=== PATIENT | male | born 1960 | race Caucasian/White ===

== ENCOUNTER 2018-09-02 12:57 | Inpatient (IN) | payer OTHER ==
[2018-09-02 13:13] VITALS: BMI 19.5
--- NOTE | 2018-09-02 15:29 | HP ---
COWS - Scale Resting Pulse: 0= [place] 80 or Below Sweatin= Chills/Flushing Restless Observation: 3= Extraneous Movement Pupil Size: 1= Pupils >than Normal Bone or Joint Aches: 2= Severe Diffuse Aches Runny Nose/ Eye Tearin= Runny Nose/Eyes GI Upset > 30mins: 2= Nausea/Diarrhea Tremor Observation: 2= Slight Tremor Visible Yawning Observation: 1= 1-2x During Session Anxiety or Irritability: 2=Irritable/Anxious Goose Flesh Skin: 0=Smooth Skin COWS Score: 16 Admission ROS S - HPI Chief Complaint: i need help to stop using heroin and marijuana Allergies/Adverse Reactions: Allergies Allergy/AdvReac Type Severity Reaction Status Date / Time No Known Allergies Allergy Verified 09/02/18 15:14 History of Present Illness: this 57 years old male with heroin dependence,also marijuana dependence,seeking detox,withdrawal symptom,[facility] detox 2010 [facility] hepatitis c no treatment weight loss anxiety,depression,insomnia hypertension no medication plan to go rehab after detox - Ebola screening Have you traveled outside of the country in the last 21 days: No (N) Have you had contact with anyone from an Ebola affected area: No Have you been sick,other than usual withdrawal symptoms: No Do you have a fever: No - Review of Systems Constitutional: Chills, Loss of Appetite, Malaise, Night Sweats, Changes in sleep, Weakness, Unintentional Wgt. Loss EENT: reports: Tearing, Nose Congestion Respiratory: reports: No Symptoms reported Cardiac: reports: No Symptoms Reported GI: reports: Nausea, Poor Appetite, Abdominal cramping Musculoskeletal: reports: Back Pain, Joint Pain, Muscle Pain, Joint Stiffness Integumentary: reports: Dryness Neuro: reports: Headache, Tremors Endocrine: reports: No Symptoms Reported Hematology: reports: No Symptoms Reported Psychiatric: reports: Orientated x3, Anxious, Depressed (insomnia) Patient History - Patient Medical History Hx Asthma: No Hx Chronic Obstructive Pulmonary Disease (COPD): No Hx Cancer: No Hx Cardiac Disorders: No Hx Congestive Heart Failure: No Hx Hypertension: Yes (no med) Hx Hypercholesterolemia: No Hx Pacemaker: No HX Cerebrovascular Accident: No Hx Seizures: No Hx Dementia: No Hx Diabetes: No Hx Gastrointestinal Disorders: No Hx Liver Disease: No Hx Genitourinary Disorders: No Hx Sexually Transmitted Disorders: No Hx Renal Disease (ESRD): No Hx Thyroid Disease: No Hx Human Immunodeficiency Virus (HIV): No (last 2016) Hx Hepatitis C: Yes (no treatment) Hx Depression: Yes Hx Suicide Attempt: No Hx Bipolar Disorder: No Hx Schizophrenia: No Other Medical History: anxiety,depression,insomnia - Patient Surgical History Past Surgical History: No - PPD History Previous Implant?: Yes Documented Results: Negative w/o proof Implanted On Prior [facility] Admission?: No PPD to be Administered?: Yes - Smoking Cessation Smoking history: Never smoked - Substance & Tx. History Hx Alcohol Use: Yes Hx Substance Use: Yes Substance Use Type: Heroin, Marijuana Hx Substance Use Treatment: Yes ([facility] in 2010) - Substances Abused Heroin Route: Inhalation Frequency: Daily Amount used: 2 bags Age of first use: 23 Date of Last Use: 09/01/18 Marijuana/Hashish Route: Smoking Frequency: Daily Amount used: 1 joint Age of first use: 14 Date of Last Use: 09/02/18 Family Disease History - Family Disease History Family Disease History: Other: Father (dsa,alcohol,), Brother (dsa, alcohol) Admission Physical Exam S - Vital Signs Vital Signs: Vital Signs - 24 hr 09/02/18 13:10 Temperature 98.2 F Pulse Rate 61 Respiratory 20 Rate Blood Pressure 113/72 - Physical General Appearance: Yes: Moderate Distress, Tremorous, Irritable, Sweating, Anxious HEENTM: Yes: Normal ENT Inspection, MARY, Pharynx Normal Respiratory: Yes: Lungs Clear, Normal Breath Sounds, No Respiratory Distress Neck: Yes: Within Normal Limits, Supple, Trachea in good position Breast: Yes: Within Normal Limits Cardiology: Yes: Within Normal Limits, Regular Rhythm, Regular Rate, S1, S2 Abdominal: Yes: Within Normal Limits, Normal Bowel Sounds, Non Tender, Soft Genitourinary: Yes: Within Normal Limits Back: Yes: Muscle Spasm Musculoskeletal: Yes: Back pain, Joint Stiffness, Muscle Pain Extremities: Yes: Within Normal Limits, Normal Range of Motion, Tremors Neurological: Yes: second baller II-XII NML intact, Alert, Motor Strength 5/5 Integumentary: Yes: Dry Lymphatic: Yes: Within Normal Limits - Diagnostic (1) Opioid dependence with withdrawal Current Visit: Yes Status: Acute (2) Cannabis dependence Current Visit: Yes Status: Acute (3) Hepatitis C Current Visit: Yes Status: Acute (4) Depression Current Visit: Yes Status: Acute (5) Dehydration Current Visit: Yes Status: Acute (6) Hypertension Current Visit: Yes Status: Acute Cleared for Admission [facility] - Detox or Rehab [facility] Level of Care: Medically Managed Detox Regimen/Protocol: Methadone [facility] Breath Alcohol Content Breath Alcohol Content: 0 Urine Drug Screen - Results Drug Screen Negative: No Urine Drug Screen Results: THC-Marijuana, OPI-Opiates, FEN-Fentanyl
[2018-09-02] MEDS ORDERED: guaiFENesin/D-METHORPHAN HB 10 ML UNIT-DOSE CUPS PO PRN (15:40)
[2018-09-02] MEDS ORDERED: MAGNESIUM CITRATE 300 ML BOTTLE PO PRN (15:40)
[2018-09-02] MEDS ORDERED: MENTHOL/PHENOL 1 EACH UD MM PRN (15:40)
[2018-09-02] MEDS ORDERED: ACETAMINOPHEN 325 MG TABLET (FP) PO PRN (15:40)
[2018-09-02] MEDS ORDERED: MAG HYDROX/AL HYDROX/SIMETH 30 ML UNIT-DOSE CUP PO PRN (15:40)
[2018-09-02] MEDS ORDERED: MAGNESIUM HYDROX 2400MG/30ML ORAL SUSPENSION 30 ML CUP PO PRN (15:40)
[2018-09-02] MEDS ORDERED: P-EPHED 60MG/TRIPROLIDI 2.5MG TABLET PO PRN (15:40)
[2018-09-02] MEDS ORDERED: LOPERAMIDE HCL 2 MG CAPSULE PO PRN (15:40)
[2018-09-02] MEDS ORDERED: IBUPROFEN 400 MG TABLET (FP) PO PRN (15:40)
[2018-09-02] MEDS ORDERED: METHADONE HCL 10 MG TABLET (FOR DETOX USE ONLY) PO ONE ×2 (16:45→23:00)
[2018-09-02] MEDS: THIAMINE HCL 100 MG TABLET (FP) PO SCH (22:35)
[2018-09-03 01:24] LABS: URINE APPEARANCE CLEAR; URINE BILIRUBIN NEGATIVE (<2.0 mg/dL); URINE COLOR YELLOW; URINE GLUCOSE (UA) NEGATIVE (NEGATIVE); URINE KETONE NEGATIVE (NEGATIVE); URINE LEUK ESTERASE NEGATIVE (NEGATIVE); URINE NITRITE NEGATIVE (NEGATIVE); URINE PROTEIN NEGATIVE (NEGATIVE); URINE UROBILINOGEN NEGATIVE mg/dL (0.2-1.0)
[2018-09-03] MEDS ORDERED: METHADONE HCL 10 MG TABLET (FOR DETOX USE ONLY) PO ONE (10:00)
[2018-09-03] MEDS: PRENATAL VITAMINS W/ FOLIC ACID TABLET (FP) PO SCH (10:22)
--- NOTE | 2018-09-03 10:35 | EKG ---
Test Reason : Blood Pressure : / mmHG Vent. Rate : 056 BPM Atrial Rate : 056 BPM P-R Int : 140 ms QRS Dur : 080 ms QT Int : 436 ms P-R-T Axes : 075 071 050 degrees QTc Int : 420 ms POOR DATA QUALITY, INTERPRETATION MAY BE ADVERSELY AFFECTED SINUS BRADYCARDIA WITH PREMATURE ATRIAL COMPLEXES NO PREVIOUS ECGS AVAILABLE Confirmed by LEONARDA BROWN MD ([id number]) on 09/03/2018 10:35:42 AM Referred By: Confirmed By:LEONARDA BROWN MD
[2018-09-03 11:26] LABS: HEMATOCRIT 42.8 % (35.4-49); HEMOGLOBIN 14.3 GM/dL (11.7-16.9); MCH 30.8 pg (25.7-33.7); MCHC 33.4 g/dl (32.0-35.9); MEAN CELL VOLUME 92.4 fl (80-96); MEAN PLT VOLUME 7.8 fl (7.5-11.1); PLATELET COUNT 167 K/MM3 (134-434); RBC 4.64 M/mm3 (4.00-5.60); RDW 13.8 % (11.9-15.9); WHITE BLOOD COUNT 5.8 K/mm3 (4.0-10.0)
[2018-09-03 11:28] LABS: ALBUMIN 3.4 g/dl (3.4-5.0); ALK PHOS 85 U/L (45-117); ANION GAP 8 MMOL/L (8-16); BILIRUBIN,TOTAL 0.5 mg/dL (0.2-1); BLOOD UREA NITROGEN 14 mg/dL (7-18); CALCIUM 8.9 mg/dL (8.5-10.1); CHLORIDE 107 mmol/L (98-107); CO2 26 mmol/L (21-32); GLUCOSE,RANDOM 80 mg/dL (74-106); POTASSIUM 4.2 mmol/L (3.5-5.1); SGOT/AST 16 U/L (15-37); SGPT/ALT 30 U/L (13-61); SODIUM 141 mmol/L (136-145); TOT PROT 6.5 g/dl (6.4-8.2)
--- NOTE | 2018-09-03 16:08 | PN ---
BHS COWS - Scale Resting Pulse: 0= [place] 80 or Below Sweatin= Chills/Flushing Restless Observation: 3= Extraneous Movement Pupil Size: 1= Pupils >than Normal Bone or Joint Aches: 2= Severe Diffuse Aches Runny Nose/ Eye Tearin= Runny Nose/Eyes GI Upset > 30mins: 2= Nausea/Diarrhea Tremor Observation of Outstretched Hands: 2= Slight Tremor Visible Yawning Observation: 1= 1-2x During Session Anxiety or Irritability: 2=Irritable/Anxious Goose Flesh Skin: 0=Smooth Skin COWS Score: 16 S Progress Note (SOAP) Subjective: alert,irritable,anxious,interrupted sleep,pain in the body and back Objective: 09/03/18 16:06 Vital Signs Temperature 98.5 F 09/03/18 15:23 Pulse Rate 64 09/03/18 15:23 Respiratory Rate 16 09/03/18 15:23 Blood Pressure 92/54 L 09/03/18 15:23 O2 Sat by Pulse Oximetry (%) ekg sinus bradycardia 56/mi pac no chest pain,no sob,no dizziness Laboratory Last Values WBC 5.8 K/mm3 (4.0-10.0) 09/03/18 08:00 RBC 4.64 M/mm3 (4.00-5.60) 09/03/18 08:00 Hgb 14.3 GM/dL (11.7-16.9) 09/03/18 08:00 Hct 42.8 % (35.4-49) 09/03/18 08:00 MCV 92.4 fl (80-96) 09/03/18 08:00 MCH 30.8 pg (25.7-33.7) 09/03/18 08:00 MCHC 33.4 g/dl (32.0-35.9) 09/03/18 08:00 RDW 13.8 % (11.9-15.9) 09/03/18 08:00 Plt Count 167 K/MM3 (134-434) 09/03/18 08:00 MPV 7.8 fl (7.5-11.1) 09/03/18 08:00 Sodium 141 mmol/L (136-145) 09/03/18 08:00 Potassium 4.2 mmol/L (3.5-5.1) 09/03/18 08:00 Chloride 107 mmol/L (98-107) 09/03/18 08:00 Carbon Dioxide 26 mmol/L (21-32) 09/03/18 08:00 Anion Gap 8 MMOL/L (8-16) 09/03/18 08:00 BUN 14 mg/dL (7-18) 09/03/18 08:00 Creatinine 1.0 mg/dL (0.55-1.3) 09/03/18 08:00 Creat Clearance w eGFR > 60 (>60) 09/03/18 08:00 Random Glucose 80 mg/dL (74-106) 09/03/18 08:00 Calcium 8.9 mg/dL (8.5-10.1) 09/03/18 08:00 Total Bilirubin 0.5 mg/dL (0.2-1) 09/03/18 08:00 AST 16 U/L (15-37) 09/03/18 08:00 ALT 30 U/L (13-61) 09/03/18 08:00 Alkaline Phosphatase 85 U/L (45-117) 09/03/18 08:00 Total Protein 6.5 g/dl (6.4-8.2) 09/03/18 08:00 Albumin 3.4 g/dl (3.4-5.0) 09/03/18 08:00 Urine Color Yellow 09/03/18 00:00 Urine Appearance Clear 09/03/18 00:00 Urine pH 5.0 (5.0-8.0) 09/03/18 00:00 Ur Specific [place] 1.020 (1.010-1.035) 09/03/18 00:00 Urine Protein Negative (NEGATIVE) 09/03/18 00:00 Urine Glucose (UA) Negative (NEGATIVE) 09/03/18 00:00 Urine Ketones Negative (NEGATIVE) 09/03/18 00:00 Urine Blood Negative (NEGATIVE) 09/03/18 00:00 Urine Nitrite Negative (NEGATIVE) 09/03/18 00:00 Urine Bilirubin Negative (<2.0 mg/dL) 09/03/18 00:00 Urine Urobilinogen Negative mg/dL (0.2-1.0) 09/03/18 00:00 Ur Leukocyte Esterase Negative (NEGATIVE) 09/03/18 00:00 RPR Titer Nonreactive (NONREACTIVE) 09/03/18 08:00 HIV 1&2 Antibody Screen Negative 09/03/18 08:00 HIV P24 Antigen Negative 09/03/18 08:00 Assessment: 09/03/18 16:07 withdrawal symptom Plan: continue detox
--- NOTE | 2018-09-03 16:37 | CONSULT ---
[facility] Psychiatric Consult - Data Date of interview: 09/03/18 Admission source: [facility] Identifying data: First admission to [facility] for this 57 y/o male seeking detoxification treatment on for heroin and cannabis dependence.Patient is single without dependents,homeless,unemployed and currently deprived of income (welfare cancelled). Substance Abuse History: Discussed with the patient in this session. Mr Almanza confirms continuous abuse of heroin and marihuana as decribed in this [facility] report which follows : Smoking history: Never smoked. - Substance & Tx. History. Hx Alcohol Use: Yes. Hx Substance Use: Yes. Substance Use Type: Heroin, Marijuana. Hx Substance Use Treatment: Yes ([facility] in 2010). - Substances Abused. Heroin. Route: Inhalation. Frequency: Daily. Amount used: 2 bags. Age of first use: 23. Date of Last Use: 09/01/18. Marijuana/ Hashish. Route: Smoking. Frequency: Daily. Amount used: 1 joint. Age of first use: 14. Date of Last Use: 09/02/18 Medical History: Hepatitis C and hypertension. Psychiatric History: Patient denies history of psychiatric hospitalizations or suicide attempts. No prior experience with OPD care.Mr Almanza reports that he saw a psychiatrist " once ", at the [facility]. No follow up. Physical/Sexual Abuse/Trauma History: Patient denies. Additional Comment: Urine Drug Screen Results: THC-Marijuana, OPI-Opiates, FEN- Fentanyl.Noted. Mental Status Exam - Mental Status Exam Alert and Oriented to: Time, Place Cognitive Function: Good Patient Appearance: Well Groomed Mood: Hopeful, Euthymic Affect: Appropriate, Normal Range Patient Behavior: Cooperative Speech Pattern: Clear, Appropriate Voice Loudness: Normal Thought Process: Intact, Goal Oriented Thought Disorder: Not Present Hallucinations: Denies Suicidal Ideation: Denies Homicidal Ideation: Denies Insight/Judgement: Poor Sleep: Well Appetite: Good Muscle strength/Tone: Normal Gait/Station: Normal Psychiatric Findings - Problem List ([place] 1, 2,3) (1) Opioid dependence with withdrawal Current Visit: Yes Status: Acute (2) Cannabis dependence Current Visit: Yes Status: Acute - Initial Treatment Plan Initial Treatment Plan: Psychoeducation.Detoxification.Observation.
[2018-09-03] MEDS: THIAMINE HCL 100 MG TABLET (FP) PO SCH (22:35)
[2018-09-03] MEDS: diazePAM 5 MG TABLET PO PRN (22:37)
[2018-09-04] MEDS ORDERED: METHADONE HCL 5 MG TABLET (FOR DETOX USE ONLY) PO ONE (10:00)
[2018-09-04] MEDS: PRENATAL VITAMINS W/ FOLIC ACID TABLET (FP) PO SCH (10:23)
[2018-09-04] MEDS: diazePAM 5 MG TABLET PO PRN (10:25)
--- NOTE | 2018-09-04 16:27 | PN ---
BHS COWS - Scale Resting Pulse: 0= [place] 80 or Below Sweatin= Chills/Flushing Restless Observation: 3= Extraneous Movement Pupil Size: 1= Pupils >than Normal Bone or Joint Aches: 2= Severe Diffuse Aches Runny Nose/ Eye Tearin= Runny Nose/Eyes GI Upset > 30mins: 2= Nausea/Diarrhea Tremor Observation of Outstretched Hands: 2= Slight Tremor Visible Yawning Observation: 1= 1-2x During Session Anxiety or Irritability: 2=Irritable/Anxious Goose Flesh Skin: 0=Smooth Skin COWS Score: 16 BHS Progress Note (SOAP) Subjective: Interrupted sleep, sweating Objective: 09/04/18 16:26 Last Vital Signs Temp Pulse Resp BP Pulse Ox 97.6 F 69 20 134/92 09/04/18 14:13 09/04/18 14:13 09/04/18 14:13 09/04/18 14:13 Laboratory Tests 09/03/18 09/03/18 09/03/18 00:00 08:00 08:00 WBC 5.8 RBC 4.64 Hgb 14.3 Hct 42.8 MCV 92.4 MCH 30.8 MCHC 33.4 RDW 13.8 Plt Count 167 MPV 7.8 Sodium Potassium Chloride Carbon Dioxide Anion Gap BUN Creatinine Creat Clearance w eGFR Random Glucose Calcium Total Bilirubin AST ALT Alkaline Phosphatase Total Protein Albumin Urine Color Yellow Urine Appearance Clear Urine pH 5.0 Ur Specific [place] 1.020 Urine Protein Negative Urine Glucose (UA) Negative Urine Ketones Negative Urine Blood Negative Urine Nitrite Negative Urine Bilirubin Negative Urine Urobilinogen Negative Ur Leukocyte Esterase Negative RPR Titer HIV 1&2 Antibody Screen Negative HIV P24 Antigen Negative 09/03/18 09/03/18 08:00 08:00 WBC RBC Hgb Hct MCV MCH MCHC RDW Plt Count MPV Sodium 141 Potassium 4.2 Chloride 107 Carbon Dioxide 26 Anion Gap 8 BUN 14 Creatinine 1.0 Creat Clearance w eGFR > 60 Random Glucose 80 Calcium 8.9 Total Bilirubin 0.5 AST 16 ALT 30 Alkaline Phosphatase 85 Total Protein 6.5 Albumin 3.4 Urine Color Urine Appearance Urine pH Ur Specific [place] Urine Protein Urine Glucose (UA) Urine Ketones Urine Blood Urine Nitrite Urine Bilirubin Urine Urobilinogen Ur Leukocyte Esterase RPR Titer Nonreactive HIV 1&2 Antibody Screen HIV P24 Antigen Labs reviewed Assessment: 09/04/18 16:26 Withdrawal sxs Plan: Continue detox Encouraged PO water intake
[2018-09-04] MEDS: THIAMINE HCL 100 MG TABLET (FP) PO SCH (22:53)
[2018-09-04] MEDS: MELATONIN 5 MG TABLETS PO PRN (22:54)
[2018-09-05] MEDS ORDERED: METHADONE HCL 5 MG TABLET (FOR DETOX USE ONLY) PO ONE (10:00)
[2018-09-05] MEDS: PRENATAL VITAMINS W/ FOLIC ACID TABLET (FP) PO SCH (10:02)
--- NOTE | 2018-09-05 12:36 | PN ---
BHS Progress Note (SOAP) Subjective: Interrupted sleep Objective: 09/05/18 12:34 Last Vital Signs Temp Pulse Resp BP Pulse Ox 96.1 F L 62 18 122/82 09/05/18 09:22 09/05/18 09:22 09/05/18 09:22 09/05/18 09:22 Laboratory Tests 09/03/18 09/03/18 09/03/18 00:00 08:00 08:00 WBC 5.8 RBC 4.64 Hgb 14.3 Hct 42.8 MCV 92.4 MCH 30.8 MCHC 33.4 RDW 13.8 Plt Count 167 MPV 7.8 Sodium Potassium Chloride Carbon Dioxide Anion Gap BUN Creatinine Creat Clearance w eGFR Random Glucose Calcium Total Bilirubin AST ALT Alkaline Phosphatase Total Protein Albumin Urine Color Yellow Urine Appearance Clear Urine pH 5.0 Ur Specific [place] 1.020 Urine Protein Negative Urine Glucose (UA) Negative Urine Ketones Negative Urine Blood Negative Urine Nitrite Negative Urine Bilirubin Negative Urine Urobilinogen Negative Ur Leukocyte Esterase Negative RPR Titer HIV 1&2 Antibody Screen Negative HIV P24 Antigen Negative 09/03/18 09/03/18 08:00 08:00 WBC RBC Hgb Hct MCV MCH MCHC RDW Plt Count MPV Sodium 141 Potassium 4.2 Chloride 107 Carbon Dioxide 26 Anion Gap 8 BUN 14 Creatinine 1.0 Creat Clearance w eGFR > 60 Random Glucose 80 Calcium 8.9 Total Bilirubin 0.5 AST 16 ALT 30 Alkaline Phosphatase 85 Total Protein 6.5 Albumin 3.4 Urine Color Urine Appearance Urine pH Ur Specific [place] Urine Protein Urine Glucose (UA) Urine Ketones Urine Blood Urine Nitrite Urine Bilirubin Urine Urobilinogen Ur Leukocyte Esterase RPR Titer Nonreactive HIV 1&2 Antibody Screen HIV P24 Antigen Labs reviewed Assessment: 09/05/18 12:35 Withdrawal sxs Plan: Continue detox Encouraged PO water intake
[2018-09-05] MEDS: THIAMINE HCL 100 MG TABLET (FP) PO SCH (23:28)
[2018-09-05] MEDS: MELATONIN 5 MG TABLETS PO PRN (23:28)
[2018-09-06] MEDS ORDERED: METHADONE HCL 10 MG TABLET (FOR DETOX USE ONLY) PO ONE (10:00)
[2018-09-06] MEDS: PRENATAL VITAMINS W/ FOLIC ACID TABLET (FP) PO SCH (10:21)
[2018-09-06] MEDS: hydrOXYzine PAMOATE 25 MG CAPSULE (FP) PO PRN ×2 (10:21→22:01)
--- NOTE | 2018-09-06 11:50 | PN ---
BHS Progress Note (SOAP) Subjective: Sweating Objective: 09/06/18 11:47 Last Vital Signs Temp Pulse Resp BP Pulse Ox 98.9 F 73 17 126/79 09/06/18 10:05 09/06/18 10:05 09/06/18 10:05 09/06/18 10:05 Laboratory Tests 09/03/18 09/03/18 09/03/18 00:00 08:00 08:00 WBC 5.8 RBC 4.64 Hgb 14.3 Hct 42.8 MCV 92.4 MCH 30.8 MCHC 33.4 RDW 13.8 Plt Count 167 MPV 7.8 Sodium Potassium Chloride Carbon Dioxide Anion Gap BUN Creatinine Creat Clearance w eGFR Random Glucose Calcium Total Bilirubin AST ALT Alkaline Phosphatase Total Protein Albumin Urine Color Yellow Urine Appearance Clear Urine pH 5.0 Ur Specific [place] 1.020 Urine Protein Negative Urine Glucose (UA) Negative Urine Ketones Negative Urine Blood Negative Urine Nitrite Negative Urine Bilirubin Negative Urine Urobilinogen Negative Ur Leukocyte Esterase Negative RPR Titer HIV 1&2 Antibody Screen Negative HIV P24 Antigen Negative 09/03/18 09/03/18 08:00 08:00 WBC RBC Hgb Hct MCV MCH MCHC RDW Plt Count MPV Sodium 141 Potassium 4.2 Chloride 107 Carbon Dioxide 26 Anion Gap 8 BUN 14 Creatinine 1.0 Creat Clearance w eGFR > 60 Random Glucose 80 Calcium 8.9 Total Bilirubin 0.5 AST 16 ALT 30 Alkaline Phosphatase 85 Total Protein 6.5 Albumin 3.4 Urine Color Urine Appearance Urine pH Ur Specific [place] Urine Protein Urine Glucose (UA) Urine Ketones Urine Blood Urine Nitrite Urine Bilirubin Urine Urobilinogen Ur Leukocyte Esterase RPR Titer Nonreactive HIV 1&2 Antibody Screen HIV P24 Antigen Labs reviewed Assessment: 09/06/18 11:47 Withdrawal symptoms Plan: Continue detox Encouraged PO water intake
[2018-09-06] MEDS: THIAMINE HCL 100 MG TABLET (FP) PO SCH (22:00)
[2018-09-07] MEDS ORDERED: METHADONE HCL 5 MG TABLET (FOR DETOX USE ONLY) PO ONE (06:00)
[2018-09-07 06:33] VITALS: BP 126/79; PULSE 57; TEMP 97.1
[2018-09-07] MEDS: PRENATAL VITAMINS W/ FOLIC ACID TABLET (FP) PO SCH (10:08)
--- NOTE | 2018-09-07 12:23 | DS ---
[facility] Detox Discharge Summary Admission Date: 09/02/18 - History Present History: Opioid Dependence Pertinent Past History: Hepatitis C HTN - Physical Exam Results Vital Signs: Vital Signs Temperature 97.1 F L 09/07/18 06:33 Pulse Rate 57 L 09/07/18 06:33 Respiratory Rate 18 09/07/18 06:33 Blood Pressure 126/79 09/07/18 06:33 O2 Sat by Pulse Oximetry (%) Pertinent Admission Physical Exam Findings: Withdrawal symptoms Laboratory Tests 09/03/18 09/03/18 09/03/18 00:00 08:00 08:00 WBC 5.8 RBC 4.64 Hgb 14.3 Hct 42.8 MCV 92.4 MCH 30.8 MCHC 33.4 RDW 13.8 Plt Count 167 MPV 7.8 Sodium Potassium Chloride Carbon Dioxide Anion Gap BUN Creatinine Creat Clearance w eGFR Random Glucose Calcium Total Bilirubin AST ALT Alkaline Phosphatase Total Protein Albumin Urine Color Yellow Urine Appearance Clear Urine pH 5.0 Ur Specific [place] 1.020 Urine Protein Negative Urine Glucose (UA) Negative Urine Ketones Negative Urine Blood Negative Urine Nitrite Negative Urine Bilirubin Negative Urine Urobilinogen Negative Ur Leukocyte Esterase Negative RPR Titer HIV 1&2 Antibody Screen Negative HIV P24 Antigen Negative 09/03/18 09/03/18 08:00 08:00 WBC RBC Hgb Hct MCV MCH MCHC RDW Plt Count MPV Sodium 141 Potassium 4.2 Chloride 107 Carbon Dioxide 26 Anion Gap 8 BUN 14 Creatinine 1.0 Creat Clearance w eGFR > 60 Random Glucose 80 Calcium 8.9 Total Bilirubin 0.5 AST 16 ALT 30 Alkaline Phosphatase 85 Total Protein 6.5 Albumin 3.4 Urine Color Urine Appearance Urine pH Ur Specific [place] Urine Protein Urine Glucose (UA) Urine Ketones Urine Blood Urine Nitrite Urine Bilirubin Urine Urobilinogen Ur Leukocyte Esterase RPR Titer Nonreactive HIV 1&2 Antibody Screen HIV P24 Antigen Labs reviewed - Treatment Hospital Course: Detox Protocol Followed, Detoxed Safely, Responded well, Discharged Condition Good, Rehab Referral Accepted - Medication Discharge Medications: Ambulatory Orders NK [No Known Home Medication] 09/02/18 - Diagnosis (1) Cannabis dependence Current Visit: Yes Status: Chronic (2) Depression Current Visit: Yes Status: Chronic (3) Hepatitis C Current Visit: Yes Status: Chronic (4) Hypertension Current Visit: Yes Status: Chronic (5) Opioid dependence with withdrawal Current Visit: Yes Status: Acute - AMA Did Patient Leave Against Medical Advice: No (Admitted to [facility], [facility])
== END 2018-09-07 13:50 | disposition other institution (70) | DRG 773 ==
LOC: YASAS 12:57 → Y3N 15:39
PROC: HZ2ZZZZ Detoxification Services for Substance Abuse Treatment (ICD-10-PCS; principal; 2018-09-02)
DX: F11.23 Opioid dependence with withdrawal (principal); F12.20 Cannabis dependence, uncomplicated; F32.9 Major depressive disorder, single episode, unspecified; I10 Essential (primary) hypertension; B18.2 Chronic viral hepatitis C; E86.0 Dehydration; R00.1 Bradycardia, unspecified
CPT/HCPCS: 36415; 80053; 81003; 85027; 86593; 87389; 93005; 93010

== ENCOUNTER 2018-09-07 12:26 | Inpatient (IN) | payer OTHER ==
[2018-09-07] MEDS ORDERED: LOPERAMIDE HCL 2 MG CAPSULE PO PRN (13:33)
[2018-09-07] MEDS ORDERED: P-EPHED 60MG/TRIPROLIDI 2.5MG TABLET PO PRN (13:33)
[2018-09-07] MEDS ORDERED: MAGNESIUM HYDROX 2400MG/30ML ORAL SUSPENSION 30 ML CUP PO PRN (13:33)
[2018-09-07] MEDS ORDERED: MAGNESIUM CITRATE 300 ML BOTTLE PO PRN (13:33)
[2018-09-07] MEDS ORDERED: ACETAMINOPHEN 325 MG TABLET (FP) PO PRN (13:33)
[2018-09-07] MEDS ORDERED: guaiFENesin/D-METHORPHAN HB 10 ML UNIT-DOSE CUPS PO PRN (13:33)
[2018-09-07] MEDS ORDERED: MAG HYDROX/AL HYDROX/SIMETH 30 ML UNIT-DOSE CUP PO PRN (13:33)
[2018-09-07] MEDS ORDERED: hydrOXYzine PAMOATE 25 MG CAPSULE (FP) PO PRN (13:33)
[2018-09-07] MEDS ORDERED: MENTHOL/PHENOL 1 EACH UD MM PRN (13:33)
[2018-09-07] MEDS ORDERED: cloNIDine HCL 0.1 MG TABLET PO PRN (13:36)
--- NOTE | 2018-09-07 14:03 | HP ---
Psychiatrist Admission - Data Date of interview: 09/07/18 Admission source: [address] [place] [address] detox Identifying data: This is the first admission to [address] [place] [address] inpatient rehabilitation for this 57 years old H male single,unempoyed,undomiciled. Medical History: Significant for Hep C,HTN. Psychiatric History: denies previous psychiatric history,no suicidal attempts, psychiatric hospitalizations reported.reports some lseeping difficulties on and off. Physical/Sexual Abuse/Trauma History: Patient denies. Allergies/Adverse Reactions: Allergies Allergy/AdvReac Type Severity Reaction Status Date / Time Fish Containing Products Allergy Nausea Verified 09/07/18 12:52 fish derived Allergy Nausea Verified 09/07/18 12:52 Date of last physical exam: 09/07/18 Concur with the findings of this exam: Yes - Substance Abuse/Tx History Hx Alcohol Use: No Hx Substance Use: Yes (heroin since 23 yo,2 bags daily,cocaine stopped coule of weeks ago) Substance Use Type: Cocaine, Marijuana, Opiates Hx Substance Use Treatment: Yes (completed longterm inpatient rehab in 2011, longest abstinence 3 years) Mental Status Exam - Mental Status Exam Alert and Oriented to: Time, Place, Person Cognitive Function: Grossly Intact Patient Appearance: Unkempt Mood: Euthymic Affect: Mood Congruent, Normal Range Patient Behavior: Cooperative Speech Pattern: Clear Voice Loudness: Normal Thought Process: Goal Oriented Thought Disorder: Not Present Hallucinations: Denies Suicidal Ideation: Denies Homicidal Ideation: Denies Insight/Judgement: Fair Sleep: Fair Appetite: Good Muscle strength/Tone: Normal Gait/Station: Normal Psychiatric Findings - Problem List ([place] 1, 2,3) (1) Cannabis dependence Current Visit: Yes Status: Chronic (2) Hepatitis C Current Visit: Yes Status: Chronic (3) Hypertension Current Visit: Yes Status: Chronic (4) Opioid dependence Current Visit: Yes Status: Chronic (5) Substance induced mood disorder Current Visit: Yes Status: Chronic - Initial Treatment Plan Initial Treatment Plan: melatonin 5 mg po hs prn for insomnia.Will monitor progress.
[2018-09-07] MEDS ORDERED: MELATONIN 5 MG TABLETS PO PRN (22:00)
[2018-09-07] MEDS: THIAMINE HCL 100 MG TABLET (FP) PO SCH (22:02)
--- NOTE | 2018-09-08 09:57 | HP ---
[facility] Rehab Assess/Revision - Admission History Admitted to Rehab from: [facility] Date of Admission to Rehab: 09/07/18 - Vital signs Vital Signs: Vital Signs Period Temp Pulse Resp BP Sys/Lees Pulse Ox Last 24 Hr 98.7 F 80 18-18 115/94 - Findings Detox History & Physical reviewed: Yes Concur with findings: Yes Inpatient Rehab Admission - Initial Determination Are CD services needed?: Yes Free of communicable disease: Yes Not in need of hospitalization: Yes - Rehab Admission Criteria Patient is meeting Inpatient Rehab admission criteria:: Yes
[2018-09-08] MEDS: PRENATAL VITAMINS W/ FOLIC ACID TABLET (FP) PO SCH (10:13)
[2018-09-08] MEDS: THIAMINE HCL 100 MG TABLET (FP) PO SCH (21:31)
[2018-09-09] MEDS: IBUPROFEN 400 MG TABLET (FP) PO PRN (00:44)
[2018-09-09] MEDS: PRENATAL VITAMINS W/ FOLIC ACID TABLET (FP) PO SCH (09:50)
[2018-09-09] MEDS: THIAMINE HCL 100 MG TABLET (FP) PO SCH (21:27)
[2018-09-10] MEDS: PRENATAL VITAMINS W/ FOLIC ACID TABLET (FP) PO SCH (10:08)
[2018-09-10] MEDS: THIAMINE HCL 100 MG TABLET (FP) PO SCH (21:32)
[2018-09-11] MEDS: IBUPROFEN 400 MG TABLET (FP) PO PRN (01:55)
[2018-09-11] MEDS: PRENATAL VITAMINS W/ FOLIC ACID TABLET (FP) PO SCH (09:58)
[2018-09-11] MEDS: THIAMINE HCL 100 MG TABLET (FP) PO SCH (21:02)
[2018-09-12] MEDS: PRENATAL VITAMINS W/ FOLIC ACID TABLET (FP) PO SCH (09:57)
[2018-09-12] MEDS: THIAMINE HCL 100 MG TABLET (FP) PO SCH (21:29)
[2018-09-13] MEDS: PRENATAL VITAMINS W/ FOLIC ACID TABLET (FP) PO SCH (09:53)
--- NOTE | 2018-09-13 12:53 | PN ---
S Progress Note Note: PT DECLINED TO TAKE HIS MULTIVITAMINS AND ENSURE AND WANTS IT TAKEN OFF THE ORDERS BECAUSE WANTS TO REST DURING TIME OF MEDICATION. PT ALSO REQUESTING FOR HYDROGEN PEROXIDE RINCE FOR IRRITABLE GUM. PLAN:1:1 DILUTION OF HYDROGEN PEROXIDE SOLUTION TID DIRECTED.
[2018-09-23] MEDS: IBUPROFEN 400 MG TABLET (FP) PO PRN (23:58)
[2018-09-27 06:44] VITALS: BP 118/69; PULSE 80; TEMP 98.4
--- NOTE | 2018-09-27 11:43 | PN ---
S Progress Note Note: Called by nursing staff to enter discharge order for patient who left the unit earlier today. According to staff patient was stable on discharge. Refer to staff note for further information
== END 2018-09-27 10:30 | disposition home or self-care (01) | DRG 772 ==
LOC: YASAS 12:26 → Y5N 12:27
PROVIDERS: ADMIT Psychiatry & Neurology Psychiatry; ATTEND Psychiatry & Neurology Psychiatry
PROC: HZ42ZZZ Group Counseling for Substance Abuse Treatment, Cognitive-Behavioral (ICD-10-PCS; principal; 2018-09-07)
DX: F11.20 Opioid dependence, uncomplicated (principal); F12.20 Cannabis dependence, uncomplicated; F19.24 Other psychoactive substance dependence with psychoactive substance-induced mood disorder; I10 Essential (primary) hypertension; B18.2 Chronic viral hepatitis C